=== PATIENT | female | born 1975 | race Two or more races ===

== ENCOUNTER 2017-11-15 15:44 | Emergency (ER) | payer SELFPAY ==
[~2017-11-15] VITALS: Ht 162.6 cm; Wt 81.6 kg
[2017-11-15 16:20] VITALS: BP 139/76
[2017-11-15] MEDS ORDERED: LIDOCAINE 1% (LOCAL ANESTH.) PF 5ml SDV IJ ONE (16:45)
== END 2017-11-15 18:05 | disposition home or self-care (01) ==
LOC: ER 15:48
DX: S51.012A Laceration without foreign body of left elbow, initial encounter (principal); W18.39XA Other fall on same level, initial encounter; Y93.89 Activity, other specified; Y92.89 Other specified places as the place of occurrence of the external cause; Y99.8 Other external cause status
CPT/HCPCS: 12002; 73080